=== PATIENT | female | born 1970 | race Caucasian/White ===

== ENCOUNTER 2017-02-21 22:10 | Observation (INO) | payer OTHER ==
[~2017-02-21] VITALS: Ht 149.9 cm; Wt 48.3 kg
[2017-02-22] MEDS ORDERED: LEVO50TA5 PO (00:09)
[2017-02-22] MEDS ORDERED: ACETAMINOPHEN 325 MG TABLET. PO PRN (00:30)
[2017-02-22 03:21] VITALS: BP 95/57
[2017-02-22] MEDS ORDERED: LEVOTHYROXINE 50 MCG TABLET PO SCH (06:00)
[2017-02-22 07:00] VITALS: BP 120/77
[2017-02-22 07:24] LABS: BASO # 0.1 x10^3/uL (0.0-0.2); BASO % 1 % (0-3); EOS % 4 % (0-3); HEMATOCRIT 38.7 % (36.0-47.0); HEMOGLOBIN 12.7 g/dL (12.0-15.5); LYMPH % 33 % (24-48); MEAN CORPUSCULAR HEMOGLOBIN 30 pg (25-35); MEAN CORPUSCULAR HGB CONC 33 g/dL (31-37); MEAN CORPUSCULAR VOLUME 91 fL (79-100); MONO % 9 % (0-9); NEUT % 53 % (31-73); PLATELET COUNT 362 x10^3/uL (140-400); RED BLOOD COUNT 4.25 x10^6/uL (3.50-5.40); WHITE BLOOD COUNT 6.3 x10^3/uL (4.0-11.0)
[2017-02-22 07:37] LABS: ALBUMIN 3.6 g/dL (3.4-5.0); ALBUMIN/GLOBULIN RATIO 1.2 (1.0-1.7); CALCIUM 8.5 mg/dL (8.5-10.1); CREATININE 0.8 mg/dL (0.6-1.0); GFR 76.6; POTASSIUM 3.7 mmol/L (3.5-5.1); TOTAL BILIRUBIN 0.5 mg/dL (0.2-1.0); TOTAL PROTEIN 6.7 g/dL (6.4-8.2)
[2017-02-22] MEDS ORDERED: ASPIRIN 325 MG TABLET PO SCH (08:00)
[2017-02-22] MEDS ORDERED: GADOBUTROL 7.5 MMOL/7.5 ML VIAL IV ONE (09:15)
--- NOTE | 2017-02-22 09:53 | RAD ---
INDICATION: TIA, momentary vision loss in left eye. TECHNIQUE: Sagittal T1, axial T1, axial T2, axial FLAIR, axial T2 gradient, diffusion imaging with ADC map, postcontrast axial, and postcontrast coronal sequences are provided. Patient received 4.5 mL of intravenous Gadavist without complication. Comparison is from 1 day earlier. FINDINGS: The ventricles and sulci are slightly prominent for age, has a parietal predominance. There is no acute intracranial hemorrhage or extra-axial fluid collection. There is no mass effect or midline shift. There is no restricted diffusion to suggest an acute infarct. Sagittal midline structures are unremarkable. Pituitary and suprasellar region are unremarkable. Intracranial flow voids are preserved. Paranasal sinuses and mastoid air cells are clear. There is nasal septal deviation to the right. There is no pathologic enhancement. IMPRESSION: 1. No acute intracranial findings. No evidence of an acute infarct. 2. Mild brain parenchymal volume loss with a parietal predominance. Electronically signed by: Dhaval Magana MD (02/22/2017 9:49 AM) [id number]
[2017-02-22] MEDS ORDERED: ONDANSETRON PF 4 MG/2 ML VIAL. IV PRN (10:15)
[2017-02-22 11:00] VITALS: BP 114/74
[2017-02-22] MEDS ORDERED: ASPI325T11 PO (13:57)
--- NOTE | 2017-02-22 14:00 | PDOC1 ---
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 Brain MRI neg, US carotids pending, VS ok, NEuro intact, Cleared by neuro once carotid US neg, New RX ASA 325, Only past medical is hypothyroidism on synthroid, WAnts to go home Past Medical History Endocrine: Hypothyroidism Past Surgical History Past Surgical History: No pertinent history Family History Family History: Hypertension Social History Smoke: No ALCOHOL: none Drugs: None Current Medications Current Medications Current Medications Acetaminophen (Tylenol) 650 mg PRN Q6HRS PRN PO PAIN Last administered on 00:35; Start 02/22/17 at 00:30 Levothyroxine Sodium (Synthroid) 50 mcg DAILY06 PO Last administered on 06:08; Start 02/22/17 at 06:00 Aspirin (Allison Aspirin) 325 mg DAILYWBKFT PO Last administered on 02/22/17 08: 45; Start 02/22/17 at 08:00 Gadobutrol (Gadavist) 4.5 mmol 1X ONCE IV Last administered on 02/22/17 09:29 ; Start 02/22/17 at 09:15; Stop 02/22/17 at 09:16; Status DC Ondansetron HCl (Zofran) 4 mg PRN Q6HRS PRN IV NAUSEA/VOMITING; Start 02/22/17 at 10:15 Active Scripts Active Reported Levothyroxine Sodium 50 Mcg Tablet 1 Tab PO DAILY Allergies Allergies: Coded Allergies: No Known Allergies (Verified Allergy, Unknown, 02/22/17) ROS Review of System as per HPI all else is neg Physical Exam General: Alert, Oriented X3, Cooperative, No acute distress HEENT: Atraumatic, PERRLA, EOMI Lungs: Clear to auscultation, Normal air movement Heart: S1S2, RRR, no thrills, no rubs, no gallops, no murmurs Cardiovascular: S1, S2 Breasts: Normal, Rt breast nml w/o mass, Lt breast nml w/o mass, Nipples normal Abdomen: Normal bowel sounds, Soft, No tenderness, No hepatosplenomegaly, No masses Rectal Exam: not examined PELVIC: Nml ext genitalia Extremities: No clubbing, No cyanosis, No edema, Normal pulses, No tenderness/ swelling Skin: No rashes, No breakdown, No significant lesion Neuro: Normal gait, Normal speech, Strength at 5/5 X4 ext, Normal tone, Sensation intact, Cranial nerves 3-12 NL, Reflexes 2+ Psych/Mental Status: Mental status NL, Mood NL Vitals Vitals Vital Signs Date Time Temp Pulse Resp B/P (MAP) Pulse Ox O2 Delivery O2 Flow Rate FiO2 02/22/17 11:00 97.5 84 17 114/74 (87) 99 Room Air 97.5 Labs Labs Laboratory Tests Test 02/22/17 07:00 White Blood Count 6.3 x10^3/uL (4.0-11.0) Red Blood Count 4.25 x10^6/uL (3.50-5.40) Hemoglobin 12.7 g/dL (12.0-15.5) Hematocrit 38.7 % (36.0-47.0) Mean Corpuscular Volume 91 fL (79-100) Mean Corpuscular Hemoglobin 30 pg (25-35) Mean Corpuscular Hemoglobin Concent 33 g/dL (31-37) Red Cell Distribution Width 13.0 % (11.5-14.5) Platelet Count 362 x10^3/uL (140-400) Neutrophils (%) (Auto) 53 % (31-73) Lymphocytes (%) (Auto) 33 % (24-48) Monocytes (%) (Auto) 9 % (0-9) Eosinophils (%) (Auto) 4 % (0-3) Basophils (%) (Auto) 1 % (0-3) Neutrophils # (Auto) 3.3 x10^3uL (1.8-7.7) Lymphocytes # (Auto) 2.0 x10^3/uL (1.0-4.8) Monocytes # (Auto) 0.6 x10^3/uL (0.0-1.1) Eosinophils # (Auto) 0.3 x10^3/uL (0.0-0.7) Basophils # (Auto) 0.1 x10^3/uL (0.0-0.2) Sodium Level 142 mmol/L (136-145) Potassium Level 3.7 mmol/L (3.5-5.1) Chloride Level 106 mmol/L (98-107) Carbon Dioxide Level 26 mmol/L (21-32) Anion Gap 10 (6-14) Blood Urea Nitrogen 7 mg/dL (7-20) Creatinine 0.8 mg/dL (0.6-1.0) Estimated GFR (Cockcroft-Gault) 76.6 BUN/Creatinine Ratio 9 (6-20) Glucose Level 98 mg/dL (70-99) Calcium Level 8.5 mg/dL (8.5-10.1) Total Bilirubin 0.5 mg/dL (0.2-1.0) Aspartate Amino Transf (AST/SGOT) 14 U/L (15-37) Alanine Aminotransferase (ALT/SGPT) 16 U/L (14-59) Alkaline Phosphatase 42 U/L (46-116) Total Protein 6.7 g/dL (6.4-8.2) Albumin 3.6 g/dL (3.4-5.0) Albumin/Globulin Ratio 1.2 (1.0-1.7) Thyroid Stimulating Hormone (TSH) 1.421 uIU/mL (0.358-3.74) Laboratory Tests Test 02/22/17 07:00 White Blood Count 6.3 x10^3/uL (4.0-11.0) Red Blood Count 4.25 x10^6/uL (3.50-5.40) Hemoglobin 12.7 g/dL (12.0-15.5) Hematocrit 38.7 % (36.0-47.0) Mean Corpuscular Volume 91 fL (79-100) Mean Corpuscular Hemoglobin 30 pg (25-35) Mean Corpuscular Hemoglobin Concent 33 g/dL (31-37) Red Cell Distribution Width 13.0 % (11.5-14.5) Platelet Count 362 x10^3/uL (140-400) Neutrophils (%) (Auto) 53 % (31-73) Lymphocytes (%) (Auto) 33 % (24-48) Monocytes (%) (Auto) 9 % (0-9) Eosinophils (%) (Auto) 4 % (0-3) Basophils (%) (Auto) 1 % (0-3) Neutrophils # (Auto) 3.3 x10^3uL (1.8-7.7) Lymphocytes # (Auto) 2.0 x10^3/uL (1.0-4.8) Monocytes # (Auto) 0.6 x10^3/uL (0.0-1.1) Eosinophils # (Auto) 0.3 x10^3/uL (0.0-0.7) Basophils # (Auto) 0.1 x10^3/uL (0.0-0.2) Sodium Level 142 mmol/L (136-145) Potassium Level 3.7 mmol/L (3.5-5.1) Chloride Level 106 mmol/L (98-107) Carbon Dioxide Level 26 mmol/L (21-32) Anion Gap 10 (6-14) Blood Urea Nitrogen 7 mg/dL (7-20) Creatinine 0.8 mg/dL (0.6-1.0) Estimated GFR (Cockcroft-Gault) 76.6 BUN/Creatinine Ratio 9 (6-20) Glucose Level 98 mg/dL (70-99) Calcium Level 8.5 mg/dL (8.5-10.1) Total Bilirubin 0.5 mg/dL (0.2-1.0) Aspartate Amino Transf (AST/SGOT) 14 U/L (15-37) Alanine Aminotransferase (ALT/SGPT) 16 U/L (14-59) Alkaline Phosphatase 42 U/L (46-116) Total Protein 6.7 g/dL (6.4-8.2) Albumin 3.6 g/dL (3.4-5.0) Albumin/Globulin Ratio 1.2 (1.0-1.7) Thyroid Stimulating Hormone (TSH) 1.421 uIU/mL (0.358-3.74) VTE Prophylaxis Ordered VTE Prophylaxis Devices: Yes VTE Pharmacological Prophylaxi: Yes Assessment/Plan Assessment/Plan 1. Transient quadrantonopsia, neg MRI brain 2. HYpothyroidism PLAN: Await US carotids, if neg home today on daily ASA 325 COLLIN JOHNSON MD Feb 22, 2017 14:00
--- NOTE | 2017-02-22 14:01 | PDOC3 ---
Discharge Summary Visit Information Date of Admission: Feb 21, 2017 Date of Discharge: Feb 22, 2017 Admitting Diagnosis Comment: 1. Transient quadrantonopsia, neg MRI brain 2. HYpothyroidism PLAN: Await US carotids, if neg home today on daily ASA 325 Brief Hospital Course Allergies Allergies Coded Allergies Type Severity Reaction Last Updated Verified No Known Allergies Allergy Unknown 02/22/17 Yes Vital Signs Vital Signs Date Time Temp Pulse Resp B/P (MAP) Pulse Ox O2 Delivery O2 Flow Rate FiO2 02/22/17 11:00 97.5 84 17 114/74 (87) 99 Room Air 97.5 Lab Results Laboratory Tests Test 02/22/17 07:00 White Blood Count 6.3 x10^3/uL (4.0-11.0) Red Blood Count 4.25 x10^6/uL (3.50-5.40) Hemoglobin 12.7 g/dL (12.0-15.5) Hematocrit 38.7 % (36.0-47.0) Mean Corpuscular Volume 91 fL (79-100) Mean Corpuscular Hemoglobin 30 pg (25-35) Mean Corpuscular Hemoglobin Concent 33 g/dL (31-37) Red Cell Distribution Width 13.0 % (11.5-14.5) Platelet Count 362 x10^3/uL (140-400) Neutrophils (%) (Auto) 53 % (31-73) Lymphocytes (%) (Auto) 33 % (24-48) Monocytes (%) (Auto) 9 % (0-9) Eosinophils (%) (Auto) 4 % (0-3) Basophils (%) (Auto) 1 % (0-3) Neutrophils # (Auto) 3.3 x10^3uL (1.8-7.7) Lymphocytes # (Auto) 2.0 x10^3/uL (1.0-4.8) Monocytes # (Auto) 0.6 x10^3/uL (0.0-1.1) Eosinophils # (Auto) 0.3 x10^3/uL (0.0-0.7) Basophils # (Auto) 0.1 x10^3/uL (0.0-0.2) Sodium Level 142 mmol/L (136-145) Potassium Level 3.7 mmol/L (3.5-5.1) Chloride Level 106 mmol/L (98-107) Carbon Dioxide Level 26 mmol/L (21-32) Anion Gap 10 (6-14) Blood Urea Nitrogen 7 mg/dL (7-20) Creatinine 0.8 mg/dL (0.6-1.0) Estimated GFR (Cockcroft-Gault) 76.6 BUN/Creatinine Ratio 9 (6-20) Glucose Level 98 mg/dL (70-99) Calcium Level 8.5 mg/dL (8.5-10.1) Total Bilirubin 0.5 mg/dL (0.2-1.0) Aspartate Amino Transf (AST/SGOT) 14 U/L (15-37) Alanine Aminotransferase (ALT/SGPT) 16 U/L (14-59) Alkaline Phosphatase 42 U/L (46-116) Total Protein 6.7 g/dL (6.4-8.2) Albumin 3.6 g/dL (3.4-5.0) Albumin/Globulin Ratio 1.2 (1.0-1.7) Thyroid Stimulating Hormone (TSH) 1.421 uIU/mL (0.358-3.74) Laboratory Tests Test 02/22/17 07:00 White Blood Count 6.3 x10^3/uL (4.0-11.0) Red Blood Count 4.25 x10^6/uL (3.50-5.40) Hemoglobin 12.7 g/dL (12.0-15.5) Hematocrit 38.7 % (36.0-47.0) Mean Corpuscular Volume 91 fL (79-100) Mean Corpuscular Hemoglobin 30 pg (25-35) Mean Corpuscular Hemoglobin Concent 33 g/dL (31-37) Red Cell Distribution Width 13.0 % (11.5-14.5) Platelet Count 362 x10^3/uL (140-400) Neutrophils (%) (Auto) 53 % (31-73) Lymphocytes (%) (Auto) 33 % (24-48) Monocytes (%) (Auto) 9 % (0-9) Eosinophils (%) (Auto) 4 % (0-3) Basophils (%) (Auto) 1 % (0-3) Neutrophils # (Auto) 3.3 x10^3uL (1.8-7.7) Lymphocytes # (Auto) 2.0 x10^3/uL (1.0-4.8) Monocytes # (Auto) 0.6 x10^3/uL (0.0-1.1) Eosinophils # (Auto) 0.3 x10^3/uL (0.0-0.7) Basophils # (Auto) 0.1 x10^3/uL (0.0-0.2) Sodium Level 142 mmol/L (136-145) Potassium Level 3.7 mmol/L (3.5-5.1) Chloride Level 106 mmol/L (98-107) Carbon Dioxide Level 26 mmol/L (21-32) Anion Gap 10 (6-14) Blood Urea Nitrogen 7 mg/dL (7-20) Creatinine 0.8 mg/dL (0.6-1.0) Estimated GFR (Cockcroft-Gault) 76.6 BUN/Creatinine Ratio 9 (6-20) Glucose Level 98 mg/dL (70-99) Calcium Level 8.5 mg/dL (8.5-10.1) Total Bilirubin 0.5 mg/dL (0.2-1.0) Aspartate Amino Transf (AST/SGOT) 14 U/L (15-37) Alanine Aminotransferase (ALT/SGPT) 16 U/L (14-59) Alkaline Phosphatase 42 U/L (46-116) Total Protein 6.7 g/dL (6.4-8.2) Albumin 3.6 g/dL (3.4-5.0) Albumin/Globulin Ratio 1.2 (1.0-1.7) Thyroid Stimulating Hormone (TSH) 1.421 uIU/mL (0.358-3.74) Brief Hospital Course Ms. 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 Brain MRI neg, US carotids pending, VS ok, NEuro intact, Cleared by neuro once carotid US neg, New RX ASA 325, Only past medical is hypothyroidism on synthroid, WAnts to go home Discharge Information Condition at Discharge: Improved, Stable Disposition/Orders: D/C to Home Scheduled Levothyroxine Sodium (Levothyroxine Sodium), 1 TAB PO DAILY, (Reported) COLLIN JOHNSON MD Feb 22, 2017 14:01
--- NOTE | 2017-02-22 14:05 | RAD ---
Carotid Doppler 02/22/2017 Indication: Transient ischemic attack Comparison: None available Technique: Sonographic imaging of the neck vessels performed utilizing grayscale, color Doppler and spectral waveform analysis. Findings: Right carotid: No intraluminal filling defects are identified. Peak systolic velocity: Proximal common carotid artery: 83 cm/s Middle common carotid artery 82 cm/s Distal common carotid artery: 72 cm/s Proximal internal carotid artery: 54 cm/s Mid internal carotid artery: 70 cm/s Distal internal carotid artery: 71 cm/s External carotid artery: 85 cm/s End-diastolic velocity: Proximal common carotid artery: 30 cm/s Middle common carotid artery 27 cm/s Distal common carotid artery: 27 cm/s Proximal internal carotid artery: 22 cm/s Mid internal carotid artery: 30 cm/s Distal internal carotid artery: 31 cm/s Proximal ICA/CCA ratio: 0.65 Mid ICA/ECA ratio: 0.85 Distal ICA/CCA ratio: 0.86 Antegrade flow is identified within the vertebral artery. No subclavian stenosis. Left carotid: No intraluminal filling defects are identified. Proximal common carotid artery: 93 cm/s Middle common carotid artery 82 cm/s Distal common carotid artery: 86 cm/s Proximal internal carotid artery: 70 cm/s Mid internal carotid artery: 86 cm/s Distal internal carotid artery: 115 cm/s External carotid artery: 94 cm/s End- diastolic velocity: Proximal common carotid artery: 21 cm/s Middle common carotid artery 26 cm/s Distal common carotid artery: 24 cm/s Proximal internal carotid artery: 21 cm/s Mid internal carotid artery: 37 cm/s Distal internal carotid artery: 47 cm/s Proximal ICA/CCA ratio: 0.85 Mid ICA/ECA ratio: 1.04 Distal ICA/CCA ratio 1.40 Antegrade flow is identified in the vertebral artery. No subclavian stenosis. Impression: 1. No sonographic evidence for carotid stenosis. 3. Antegrade flow is identified in the vertebral arteries.
--- NOTE | 2017-02-22 17:25 | PDOC2 ---
NEUROLOGY CONSULT Date of Admission Date of Admission DATE: 02/22/17 TIME: 17:15 Reason for Consult Reason for Consult: IMPRESSION: TIA Left eye visual field deficits on 02/21. No evidence of acute CVA this time. RECOMMENDATIONS/PLAN: ASA 243 mg to 325 mg daily. Carotid A US + Doppler. Fasting lipid panel in am or with PCP. See Ophthalmology. FU with PCP. FU with Neurology as needed. HISTORY OF THE PRESENT ILLNESS: 46-y-old female patient without significant PMX developed symptoms of left side visual field deficits around 5:00 pm on 02/21/17. She stated she was not able to see object in the left side temporal field. No headaches complained. No sensory or motor deficits at that time. No other cranial nerve abnormality associated. Her symptoms lasted for about 45 minutes then resolved. No recurrence since in the hospital. PAST MEDICAL HISTORY: Unremarkable. PAST SURGERY HISTORY: No major surgery recently. ALLERGY: NKDA MEDICATIONS: Refer to [facility] FAMILY HISTORY: Non contributory. SOCIAL HISTORY: Lives alone. Lives in custodial. Denies smoking and illicit drug use. She drinks occasionally. REVIEW OF SYSTEMS: Constitutional: No malnutrition, weight loss, cachexia. Head: No traumatic brain or head injury. Skin: No edema, or rash. Ear: No infection. Eyes: No vision loss or color blindness. Nose: No bleeding or purulent discharges. Hearing: No hearing decrease. Neck: No injury. Breast: No history of cancer, masses,or discharges. Cardiac: No IL, arrhythmia. Pulmonary: No COPD. GI: No GI ulcer, GI bleeding, GERD. Urinary/genital: UTI. Endocrinologic: No cousin face, craniofacial dysmorphism, polydactyly. Skeletomuscular: No muscular atrophy, deformity. Neurological: see HP. Psychiatric: Denies drug use/abuse. Otherwise, not [id number] review of systems. PHYSICAL EXAMINATION: General appearance is in no acute distress. HEENT: Normocephalic and nontraumatic. Eyes, nose, ears, and throat are unremarkable. Neck is supple. No lymphadenopathy. No bruits are heard over the carotid artery. No crepitus. Cardiovascular: S1, S2, regular rate and rhythm. Pulmonary: Clear to auscultation bilaterally. Abdomen: Bowel sounds are positive. Abdomen is soft, nontender, and nondistended. Extremities: No rash, lesions, or edema. No restriction of range of motion NEUROLOGICAL EXAMINATION: Alert Oriented to time, place and person. PERRL. EOMI. CN: no focal findings. Muscle tone: within normal. Muscle strength: 5 DTR: 2 Plantar reflex: Flexor response bilaterally Gait: not examined in bed. Sensory exam: no abnormal findings. No cerebellar signs elicited. F-T-N test accurate. Current Medications Current Medications Current Medications Acetaminophen (Tylenol) 650 mg PRN Q6HRS PRN PO PAIN Last administered on 00:35; Start 02/22/17 at 00:30; Stop 02/22/17 at 15:36; Status DC Levothyroxine Sodium (Synthroid) 50 mcg DAILY06 PO Last administered on 06:08; Start 02/22/17 at 06:00; Stop 02/22/17 at 15:36; Status DC Aspirin (Allison Aspirin) 325 mg DAILYWBKFT PO Last administered on 02/22/17 08: 45; Start 02/22/17 at 08:00; Stop 02/22/17 at 15:36; Status DC Gadobutrol (Gadavist) 4.5 mmol 1X ONCE IV Last administered on 02/22/17 09:29 ; Start 02/22/17 at 09:15; Stop 02/22/17 at 09:16; Status DC Ondansetron HCl (Zofran) 4 mg PRN Q6HRS PRN IV NAUSEA/VOMITING; Start 02/22/17 at 10:15; Stop 02/22/17 at 15:36; Status DC Active Scripts Active Aspirin Ec (Aspirin) 325 Mg Tablet. 1 Tab PO DAILY Reported Levothyroxine Sodium 50 Mcg Tablet 1 Tab PO DAILY Allergies Allergies: Coded Allergies: No Known Allergies (Verified Allergy, Unknown, 02/22/17) Vitals VITALS Vital Signs Date Time Temp Pulse Resp B/P (MAP) Pulse Ox O2 Delivery O2 Flow Rate FiO2 02/22/17 11:00 97.5 84 17 114/74 (87) 99 Room Air 97.5 Labs Labs Laboratory Tests Test 02/22/17 07:00 White Blood Count 6.3 x10^3/uL (4.0-11.0) Red Blood Count 4.25 x10^6/uL (3.50-5.40) Hemoglobin 12.7 g/dL (12.0-15.5) Hematocrit 38.7 % (36.0-47.0) Mean Corpuscular Volume 91 fL (79-100) Mean Corpuscular Hemoglobin 30 pg (25-35) Mean Corpuscular Hemoglobin Concent 33 g/dL (31-37) Red Cell Distribution Width 13.0 % (11.5-14.5) Platelet Count 362 x10^3/uL (140-400) Neutrophils (%) (Auto) 53 % (31-73) Lymphocytes (%) (Auto) 33 % (24-48) Monocytes (%) (Auto) 9 % (0-9) Eosinophils (%) (Auto) 4 % (0-3) Basophils (%) (Auto) 1 % (0-3) Neutrophils # (Auto) 3.3 x10^3uL (1.8-7.7) Lymphocytes # (Auto) 2.0 x10^3/uL (1.0-4.8) Monocytes # (Auto) 0.6 x10^3/uL (0.0-1.1) Eosinophils # (Auto) 0.3 x10^3/uL (0.0-0.7) Basophils # (Auto) 0.1 x10^3/uL (0.0-0.2) Sodium Level 142 mmol/L (136-145) Potassium Level 3.7 mmol/L (3.5-5.1) Chloride Level 106 mmol/L (98-107) Carbon Dioxide Level 26 mmol/L (21-32) Anion Gap 10 (6-14) Blood Urea Nitrogen 7 mg/dL (7-20) Creatinine 0.8 mg/dL (0.6-1.0) Estimated GFR (Cockcroft-Gault) 76.6 BUN/Creatinine Ratio 9 (6-20) Glucose Level 98 mg/dL (70-99) Calcium Level 8.5 mg/dL (8.5-10.1) Total Bilirubin 0.5 mg/dL (0.2-1.0) Aspartate Amino Transf (AST/SGOT) 14 U/L (15-37) Alanine Aminotransferase (ALT/SGPT) 16 U/L (14-59) Alkaline Phosphatase 42 U/L (46-116) Total Protein 6.7 g/dL (6.4-8.2) Albumin 3.6 g/dL (3.4-5.0) Albumin/Globulin Ratio 1.2 (1.0-1.7) Thyroid Stimulating Hormone (TSH) 1.421 uIU/mL (0.358-3.74) Laboratory Tests Test 02/22/17 07:00 White Blood Count 6.3 x10^3/uL (4.0-11.0) Red Blood Count 4.25 x10^6/uL (3.50-5.40) Hemoglobin 12.7 g/dL (12.0-15.5) Hematocrit 38.7 % (36.0-47.0) Mean Corpuscular Volume 91 fL (79-100) Mean Corpuscular Hemoglobin 30 pg (25-35) Mean Corpuscular Hemoglobin Concent 33 g/dL (31-37) Red Cell Distribution Width 13.0 % (11.5-14.5) Platelet Count 362 x10^3/uL (140-400) Neutrophils (%) (Auto) 53 % (31-73) Lymphocytes (%) (Auto) 33 % (24-48) Monocytes (%) (Auto) 9 % (0-9) Eosinophils (%) (Auto) 4 % (0-3) Basophils (%) (Auto) 1 % (0-3) Neutrophils # (Auto) 3.3 x10^3uL (1.8-7.7) Lymphocytes # (Auto) 2.0 x10^3/uL (1.0-4.8) Monocytes # (Auto) 0.6 x10^3/uL (0.0-1.1) Eosinophils # (Auto) 0.3 x10^3/uL (0.0-0.7) Basophils # (Auto) 0.1 x10^3/uL (0.0-0.2) Sodium Level 142 mmol/L (136-145) Potassium Level 3.7 mmol/L (3.5-5.1) Chloride Level 106 mmol/L (98-107) Carbon Dioxide Level 26 mmol/L (21-32) Anion Gap 10 (6-14) Blood Urea Nitrogen 7 mg/dL (7-20) Creatinine 0.8 mg/dL (0.6-1.0) Estimated GFR (Cockcroft-Gault) 76.6 BUN/Creatinine Ratio 9 (6-20) Glucose Level 98 mg/dL (70-99) Calcium Level 8.5 mg/dL (8.5-10.1) Total Bilirubin 0.5 mg/dL (0.2-1.0) Aspartate Amino Transf (AST/SGOT) 14 U/L (15-37) Alanine Aminotransferase (ALT/SGPT) 16 U/L (14-59) Alkaline Phosphatase 42 U/L (46-116) Total Protein 6.7 g/dL (6.4-8.2) Albumin 3.6 g/dL (3.4-5.0) Albumin/Globulin Ratio 1.2 (1.0-1.7) Thyroid Stimulating Hormone (TSH) 1.421 uIU/mL (0.358-3.74) EMMA RICHEY MD Feb 22, 2017 17:25
== END 2017-02-22 14:57 | disposition home or self-care (01) ==
LOC: 6 SOUTH 23:45 → INTOOBSV 23:45
PROVIDERS: ADMIT Internal Medicine Hematology & Oncology; ATTEND Internal Medicine Hematology & Oncology
DX: H53.462 Homonymous bilateral field defects, left side (principal); E03.9 Hypothyroidism, unspecified; Z79.82 Long term (current) use of aspirin; Z82.49 Family history of ischemic heart disease and other diseases of the circulatory system
CPT/HCPCS: 36415; 70553; 80053; 84443; 85025; 93880; A9585; G0378; G0379

== ENCOUNTER → 2017-03-08 | Outpatient (CLI) | payer OTHER ==
[2017-02-22 11:00] VITALS: BP 114/74
[~2017-03-08] MED LIST: ASPI325T11 PO; GADOBUTROL 7.5 MMOL/7.5 ML VIAL IV ONE; LEVO50TA5 PO
--- NOTE | 2017-03-08 10:09 | RAD ---
MRA Brain History:TIA, HX OF [place] Technique: 3-D [id number] MR angiography was performed of the brain. Comparison: None Contrast: None Findings: Determination of any degree of stenosis is based on NASCET criteria. There is motion degradation. Both vertebral arteries constitute the basilar artery, dominant left vertebral artery. There is visualization segments of bilateral PICAs, AICAs, and superior cerebellar arteries. There is small right posterior communicating artery, difficult to visualize in its entirety more distally, no significant posterior communicating artery visualized. No significant anterior communicating artery is visualized. There is flow within bilateral anterior, middle, and posterior cerebral arteries. Flow is seen in the petrous, cavernous, and supraclinoid internal carotid arteries. No large aneurysm or arteriovenous malformation is identified. There is no significant focal stenosis. Impression: 1. Allowing for motion, there is no significant intracranial stenosis or aneurysm identified. Neck MRA without and with contrast History: TIA, HX OF [place] Technique: [id number] and postcontrast MR angiography was performed of the neck. Contrast: 4.5 cc Gadavist Comparison: None Findings: Determination of any degree of stenosis is based on NASCET criteria. There is some motion degradation. Left vertebral artery is dominant. There is more artifact in the region of right distal vertebral artery, segmentally not visualized on postcontrast images. Antegrade flow is demonstrated in the bilateral vertebral arteries as well as the bilateral common and internal carotid arteries. There is no significant stenosis identified of the internal or common carotid arteries. Impression: 1. There is no significant stenosis of the common or internal carotid arteries. Region of distal right vertebral artery is obscured by artifact, cannot exclude stenosis at this location. Electronically signed by: Alejandro Wolf MD (03/08/2017 10:05 AM) [facility] [email or web address]
--- NOTE | 2017-03-08 11:34 | CARD ---
APPROVED REPORT EXAM: Two-dimensional and M-mode echocardiogram with Doppler, color Doppler with contrast. Other Information Quality : Average Rhythm : NSR INDICATION CVA/TIA Echo Enhancing Agent Indication: Rule Out Septal Defect Agent/Amount Used: Agitated Saline 8mL 2D DIMENSIONS RVDd2.1 (2.9-3.5cm)Left Atrium(2D)2.5 (1.6-4.0cm) IVSd0.7 (0.7-1.1cm)Aortic Root(2D)2.3 (2.0-3.7cm) LVDd4.1 (3.9-5.9cm)LVOT Diameter1.8 (1.8-2.4cm) PWd0.7 (0.7-1.1cm)LVDs3.0 (2.5-4.0cm) FS (%) 26.9 %SV38.4 ml LVEF(%)53.1 (>50%) Aortic Valve AoV Peak Pierre.116.4cm/sAoV VTI22.4cm AO Peak GR.5.4mmHgLVOT Peak Pierre.118.1cm/s LVOT VTI 23.30cmAO Mean GR.3mmHg KERON (VMAX)2.89dm4XWQ (VTI)2.79cm2 Mitral Valve MV E Bozblkdo81.4cm/sMV DECEL VENB398ww MV A Npmpllcr04.0cm/sMV GVU60sx E/A Ratio1.4MV A Hzkxsyei981tt MVA (PHT)4.26cm2 TDI E/Lateral E'5.9E/Medial E'8.8 Pulmonary Valve PV Peak Wutbgvei17.0cm/sPV Peak Grad.3mmHg RVOT VTI16.0cm Tricuspid Valve TR P. Ondidbei767kd/sRAP LCTBUAPA7stEs TR Peak Gr.83ouPpQMZJ99otPd Pulmonary Vein S1 Mpulagxx44.0cm/sD2 Nkxhflgs21.3cm/s LEFT VENTRICLE The left ventricle is normal size. There is normal left ventricular wall thickness. Left ventricle sy stolic function is normal. The Ejection Fraction is 50-55%. There is normal LV segmental wall motion. The left ventricular diastolic function and filling is normal for age. There is no ventricular septa l defect visualized. RIGHT VENTRICLE The right ventricle is normal size. The right ventricular systolic function is normal. ATRIA The left atrium size is normal. The right atrium size is normal. The interatrial septum is intact wit h no evidence for an atrial septal defect or patent foramen ovale as noted on 2-D or Doppler imaging. Injection of bubbles documented no interatrial shunt. AORTIC VALVE The aortic valve is normal in structure and function. The aortic valve is trileaflet. Doppler and Col or Flow revealed no significant aortic regurgitation. There is no significant aortic valvular stenosi s. MITRAL VALVE The mitral valve is normal in structure and function. There is no evidence of mitral valve prolapse. There is no mitral valve stenosis. Doppler and Color Flow revealed no mitral valve regurgitation note d. TRICUSPID VALVE The tricuspid valve is normal in structure and function. Doppler and Color Flow revealed trace tricus pid regurgitation. The PA pressure was estimated at 23 mmHg. There is no tricuspid valve stenosis. PULMONIC VALVE The pulmonic valve is not well visualized. Doppler and Color Flow revealed no pulmonic valvular regur gitation. There is no pulmonic valvular stenosis. GREAT VESSELS The aortic root is normal in size. The ascending aorta is normal in size. Normal pulmonary venous héctor w (Doppler). The IVC is normal in size and collapses >50% with inspiration. PERICARDIAL EFFUSION There is no evidence of significant pericardial effusion. Critical Notification Critical Value: No <Conclusion> The left ventricle is normal size. Left ventricle systolic function is normal. The Ejection Fraction is 50-55%. The interatrial septum is intact with no evidence for an atrial septal defect or patent foramen ovale as noted on 2-D or Doppler imaging. Injection of bubbles documented no interatrial shunt. There is no significant aortic valvular stenosis. Doppler and Color Flow revealed no significant aortic regurgitation. Doppler and Color Flow revealed no mitral valve regurgitation noted. Doppler and Color Flow revealed trace tricuspid regurgitation. The PA pressure was estimated at 23 mmHg.
== END | disposition home or self-care (01) ==
LOC: MRI 08:01
PROVIDERS: ATTEND Internal Medicine Cardiovascular Disease
DX: I07.1 Rheumatic tricuspid insufficiency (principal); G45.9 Transient cerebral ischemic attack, unspecified
CPT/HCPCS: 70544; 70549; A9585; C8929

== ENCOUNTER 2020-11-28 10:48 | Emergency (ER) | payer OTHER ==
[~2020-11-28] VITALS: Ht 152.4 cm; Wt 47.0 kg
[~2020-11-28 10:48] MED LIST changes: -GADOBUTROL 7.5 MMOL/7.5 ML VIAL IV ONE
[2020-11-28 11:00] VITALS: BP 145/78
[2020-11-28] MEDS ORDERED: IV NORMAL SALINE 1000ML BAG 1,000 ML IV ONE (11:00)
--- NOTE | 2020-11-28 11:10 | PHYS DOC ---
Past Medical History Smoking Status: Never Smoker General Adult EDM: Chief Complaint: SYNCOPE HPI: HPI: Patient is a 50 year old female who presents with was getting the [employer] vaccine when she passed out in the chair. She states this is happened to her in the past when she had to have a biopsy done. Patient states she does feel generalized queasiness and weakness. She denies head ache, dizziness, lightheadedness, abdominal pain, vomiting, urinary symptoms, back pain, chest pain, shortness of breath, vision change, focal weakness, numbness or tingling. She has had a TIA in 2017. She states she is not on any kind of blood thinner. She has a history of hemianopsia, hypothyroidism. She denies any pain. Review of Systems: Review of Systems: Constitutional: Denies fever or chills. [] Eyes: Denies change in visual acuity. [] HENT: Denies nasal congestion or sore throat. [] Respiratory: Denies cough or shortness of breath. [] Cardiovascular: Denies chest pain or edema. [] GI: Denies abdominal pain, nausea, vomiting, bloody stools or diarrhea. [] : Denies dysuria. [] Musculoskeletal: Denies back pain or joint pain. + Generalized weakness [] Integument: Denies rash. [] Neurologic: Denies headache, focal weakness or sensory changes. + Syncope [] Endocrine: Denies polyuria or polydipsia. [] Lymphatic: Denies swollen glands. [] Psychiatric: Denies depression or anxiety. [] Heart Score: C/O Chest Pain: No Risk Factors: Risk Factors: DM, Current or recent (<one month) smoker, HTN, HLP, family history of CAD, obesity. Risk Scores: Score 0 - 3: 2.5% MACE over next 6 weeks - Discharge Home Score 4 - 6: 20.3% MACE over next 6 weeks - Admit for Clinical Observation Score 7 - 10: 72.7% MACE over next 6 weeks - Early Invasive Strategies Current Medications: Current Medications Medications (Trade) Dose Ordered Sig/Alondra Start Time Stop Time Status Last Admin Dose Admin Sodium Chloride 1,000 ml @ 1,000 mls/hr 1X ONCE 11/28/20 11:00 11/28/20 11:59 Allergies: Allergies: Allergies Coded Allergies Type Severity Reaction Last Updated Verified No Known Drug Allergies 11/28/20 No Physical Exam: PE: Constitutional: Well developed, well nourished, no acute distress, non-toxic appearance. [] HENT: Normocephalic, atraumatic, bilateral external ears normal, oropharynx moist, no oral exudates, nose normal. [] Eyes: PERRLA, EOMI, conjunctiva normal, no discharge. [] Neck: Normal range of motion, no tenderness, supple, no stridor. [] Cardiovascular:Heart rate regular rhythm, no murmur [] Lungs & Thorax: Bilateral breath sounds clear to auscultation [] Abdomen: Bowel sounds normal, soft, no tenderness, no masses, no pulsatile masses. [] Skin: Warm, dry, no erythema, no rash. [] Back: No tenderness, no CVA tenderness. [] Extremities: No tenderness, no cyanosis, no clubbing, ROM intact, no edema. [] Neurologic: Alert and oriented X 3, normal motor function, normal sensory fun ction, no focal deficits noted. [] Psychologic: Affect normal, judgement normal, mood normal. Normal physical exam [] EKG: EK and read by Dr. Shine as sinus rhythm and no STEMI Radiology/Procedures: Radiology/Procedures: [] Impression: [facility] [address] [place] [address] IMAGING REPORT Signed PATIENT: ABDOUL LAWS ACCOUNT: [id number] : 1970 LOCATION: ER AGE: 50 SEX: F EXAM STATUS: REG ER ORD. PHYSICIAN: MAU POWELL APRN REASON: syncope PROCEDURE: CT HEAD WO CONTRAST CT head without contrast: Reason for examination: Syncope. Helical images were obtained through the brain. No contrast was administered. Exposure: One or more of the following individualized dose reduction techniques were utilized for this examination: 1. Automated exposure control 2. Adjustment of the mA and/or kV according to patient size 3. Use of iterative reconstruction technique. Ventricular systems are symmetric and not dilated. No midline shift is seen. There is no evidence of intracranial hemorrhage, infarct, mass or edema. No abnormalities of seen at the orbits. The paranasal sinuses and mastoid air cells are clear. No acute skull abnormality is seen. IMPRESSION: No acute intracranial abnormality evident. Electronically signed by: Merle Sparrow MD (11/28/2020 11:43 AM) [facility] DICTATED and SIGNED BY: MERLE SPARROW MD DATE: 11/28/20 [id number] [facility] [address] [place] [address] IMAGING REPORT Signed PATIENT: ABDOUL LAWS ACCOUNT: [id number] : 1970 LOCATION: ER AGE: 50 SEX: F EXAM STATUS: REG ER ORD. PHYSICIAN: MAU POWELL APRN REASON: syncope PROCEDURE: PORTABLE CHEST 1V EXAM: XR CHEST 1V 11/28/2020 11:12 AM CLINICAL INDICATION: Syncope COMPARISON: None TECHNIQUE: AP upright view of the chest FINDINGS: The heart and mediastinum are normal. Lungs are well-expanded and clear. No consolidation, pleural effusion, or pneumothorax. Pulmonary vascularity is normal. The thoracic skeleton is intact. IMPRESSION: Normal chest radiograph. Electronically signed by: Tami Dela Cruz MD (11/28/2020 11:36 AM) [id number] DICTATED and SIGNED BY: TAMI DELA CRUZ MD DATE: 11/28/20 [id number] 0 Course & Med Decision Making: Course & Med Decision Making Pertinent Labs and Imaging studies reviewed. (See chart for details) See HPI. Alert and oriented x4. Speaks in full clear sentences. Skin pink warm and dry. EKG shows sinus rhythm and no STEMI. PERRLA. No neuro symptoms. Patient received some fluids and ate some crackers and had some juice. She is feeling much better. Examination today showed no acute findings. Patient states she is feeling much better and is ready to go. [] Dragon Disclaimer: Dragon Disclaimer: This electronic medical record was generated, in whole or in part, using a voice recognition dictation system. NIHSS Stroke Scale NIH Stroke Scale: NIH Stroke Scale Response (Comments) Value Level of Consciousness: 0 Alert/Responsive 0 LOC Questions: 0 Answers both correctly 0 LOC Commands: 0 Performs both tasks 0 Best Gaze: 0 Normal 0 Visual: 0 No visual loss 0 Facial Palsy: 0 Normal, symmetrical 0 Motor - Left Arm 0 No drift 0 Motor - Right Arm 0 No drift 0 Motor - Left Leg 0 No drift 0 Motor: Right Leg 0 No drift 0 Limb Ataxia: 0 Absent 0 Sensory: 0 No loss 0 Best Language: 0 Normal 0 Dysathria: 0 Normal 0 Extinction and Inattention: 0 Normal 0 Total 0 Departure Departure Impression: Primary Impression: Syncopal episodes Qualified Codes: R55 - Syncope and collapse Disposition: 01 HOME / SELF CARE / HOMELESS Condition: STABLE Referrals: ABDOUL DELUNA APRN (PCP) Patient Instructions: Syncope Additional Instructions: Follow-up with primary care provider if needed. Rest and drink plenty of fluids. Take Tylenol or ibuprofen if you have any pain. MAU POWELL APRN November 28, 2020 11:10
[2020-11-28 11:18] LABS: BASO # 0.1 x10^3/uL (0.0-0.2); BASO % 1 % (0-3); EOS # 0.2 x10^3/uL (0.0-0.7); EOS % 4 % (0-3); HEMATOCRIT 38.4 % (36.0-47.0); HEMOGLOBIN 12.9 g/dL (12.0-15.5); LYMPH # 1.7 x10^3/uL (1.0-4.8); LYMPH % 27 % (24-48); MEAN CORPUSCULAR HEMOGLOBIN 30 pg (25-35); MEAN CORPUSCULAR HGB CONC 34 g/dL (31-37); MEAN CORPUSCULAR VOLUME 89 fL (79-100); MONO # 0.6 x10^3/uL (0.0-1.1); MONO % 9 % (0-9); NEUT # 3.8 x10^3/uL (1.8-7.7); NEUT % 60 % (31-73); PLATELET COUNT 347 x10^3/uL (140-400); RED BLOOD COUNT 4.31 x10^6/uL (3.50-5.40); RED CELL DISTRIBUTION WIDTH 13.5 % (11.5-14.5); WHITE BLOOD COUNT 6.3 x10^3/uL (4.0-11.0)
[2020-11-28 11:28] LABS: CALCIUM 8.1 mg/dL (8.5-10.1); CREATININE 0.8 mg/dL (0.6-1.0); GFR 75.3; POTASSIUM 3.7 mmol/L (3.5-5.1)
[2020-11-28 11:32] LABS: ALBUMIN/GLOBULIN RATIO 1.5 (1.0-1.7); TOTAL BILIRUBIN 0.5 mg/dL (0.2-1.0); TOTAL PROTEIN 6.7 g/dL (6.4-8.2)
--- NOTE | 2020-11-28 11:39 | RAD ---
EXAM: XR CHEST 1V 11/28/2020 11:12 AM CLINICAL INDICATION: Syncope COMPARISON: None TECHNIQUE: AP upright view of the chest FINDINGS: The heart and mediastinum are normal. Lungs are well-expanded and clear. No consolidatio n, pleural effusion, or pneumothorax. Pulmonary vascularity is normal. The thoracic skeleton is int act. IMPRESSION: Normal chest radiograph. Electronically signed by: Nydia Dela Cruz MD (11/28/2020 11:36 AM) [id number]
--- NOTE | 2020-11-28 11:45 | RAD ---
CT head without contrast: Reason for examination: Syncope. Helical images were obtained through the brain. No contrast was administered. Exposure: One or more of the following individualized dose reduction techniques were utilized for thi s examination: 1. Automated exposure control 2. Adjustment of the mA and/or kV according to patient size 3. Use of iterative reconstruction technique. Ventricular systems are symmetric and not dilated. No midline shift is seen. There is no evidence of intracranial hemorrhage, infarct, mass or edema. No abnormalities of seen at the orbits. The paranasa l sinuses and mastoid air cells are clear. No acute skull abnormality is seen. IMPRESSION: No acute intracranial abnormality evident. Electronically signed by: Yolande Watson MD (11/28/2020 11:43 AM) DON
[2020-11-28 12:59] LABS: BILIRUBIN,URINE NEGATIVE (NEG); CLARITY,URINE CLEAR; COLOR,URINE YELLOW; NITRITE,URINE NEGATIVE (NEG); PROTEIN,URINE NEGATIVE (NEG-TRACE); UROBILINOGEN,URINE 0.2 mg/dL (0.2 mg/dL)
[2020-11-28 13:15] LABS: HYALINE CASTS, URINE FEW /HPF
[2020-11-28 13:16] LABS: AMORPHOUS SEDIMENT,UR PRESENT /HPF; BACTERIA,URINE FEW /HPF (0-FEW)
[2020-11-28 13:17] LABS: RBC,URINE 0 /HPF (0-2); WBC,URINE 0 /HPF (0-4)
--- NOTE | 2020-11-28 19:29 | EKG ---
[facility] [address] [place] [address] Test Date: 2020-11-28 Test Time: 10:50:50 Pat Name: ABDOUL LAWS Department: Room: Gender: F [employer]: : 1970 Requested By: MAU POWELL Order Number: [id number] Reading MD: Measurements Intervals [place] Rate: 66 P: 56 NH: 144 QRS: 80 QRSD: 82 T: 66 QT: 414 QTc: 436 Interpretive Statements SINUS RHYTHM NORMAL ECG RI6.02 No previous ECG available for comparison
== END 2020-11-28 13:56 | disposition home or self-care (01) ==
LOC: ER 10:48
DX: R55 Syncope and collapse (principal); R53.1 Weakness
CPT/HCPCS: 36415; 70450; 71045; 80053; 81001; 81025; 84484; 85025; 93005; 96360; 99285; J7030

== ENCOUNTER → 2021-01-29 | Outpatient (CLI) | payer OTHER ==
[~2021-01-29] MED LIST changes: +GADOTERATE 5 MMOL/10ML VIAL. INT ART ONE; +IOHEXOL 300 MG/ML 50 ML VIAL. INT ART ONE; +LIDOCAINE 1% Multi-Dose 20 ML VIAL. ID ONE
--- NOTE | 2021-01-29 16:28 | KCIC ---
Examination: MRI right shoulder arthrogram HISTORY: History of right shoulder pain when pushing and pulling COMPARISON: None available Technique: Multiplanar, multisequence MR imaging of the right shoulder performed after arthrogram inj ection FINDINGS: The long head of the biceps tendon within the bicipital groove. The attachment of the long head the b iceps tendon to the superior labral anchor grossly appears intact. The attachment of the subscapulari s tendon,, supraspinatus, infraspinatus tendon grossly appears intact. Faint subtle increased signal identified in the undersurface fibers of infraspinatus tendon could be subtle partial tear. No eviden ce of full-thickness tear of the rotator cuff. The muscle bulk grossly appears unremarkable. The visu alized labrum grossly appears unremarkable. Mild degenerative disease identified in the cartilage in. The acromion is type II. IMPRESSION: 1. Faint subtle increased signal identified in the undersurface fibers of the infraspinatus tendon c ould be subtle partial tear. No evidence of full-thickness tear of the rotator cuff. 2. Mild degenerative changes glenohumeral joint. Electronically signed by: Javier Espinoza MD (01/29/2021 4:25 PM) [id number]
--- NOTE | 2021-01-29 17:05 | KCIC ---
Examination: Right Shoulder Arthrogram: Indications: Right shoulder pain , tear glenoid labrum. Procedure: Risks, benefits and complications including bleeding, infection, blood vessel damage or j oint infection were discussed with the patient. Questions were answered and consent form signed. The patient was placed supine on the fluoroscopy table with the shoulder slightly externally rotated. Bony landmarks were used to plan for fluoroscopic injection. The patient was carefully prepped and draped in a sterile fashion. Using fluoroscopic guidance, local anesthetic and a 22 gauge needle th e joint space was entered. Intra-articular location was confirmed as approximately 12cc of 5 mL iodin ated contrast, 5 mL lidocaine, 10 mL saline, 0.1 cc clariscan . The procedure was well tolerated and the patient was sent to MRI. The patient was sent home in good condition with instructions to contac t referring physician if there develops signs or symptoms of complications, such as pain, bleeding, f ever or chills. Total fluoroscopic time 26 seconds Total fluoroscopic image 1 Impression: Status post fluoroscopic guided arthrogram in preparation for MRI with contrast. Electronically signed by: Javier Espinoza MD (01/29/2021 5:03 PM) [id number]
== END | disposition home or self-care (01) ==
LOC: KCIC 14:30
PROVIDERS: ATTEND Physician Assistant
DX: M25.511 Pain in right shoulder (principal); M19.011 Primary osteoarthritis, right shoulder; E03.9 Hypothyroidism, unspecified; Z79.82 Long term (current) use of aspirin; Z79.899 Other long term (current) drug therapy; Z98.890 Other specified postprocedural states; Z72.89 Other problems related to lifestyle
CPT/HCPCS: 23350; 73222; 77002; A9575; J3490; Q9967